=== PATIENT | male | born 1990 | race Caucasian/White ===

== ENCOUNTER → 2017-05-01 | Outpatient (CLI) | payer BC ==
[~2017-05-01] MED LIST: RANI150T3 PO
[2017-05-01 17:49] LABS: ALT/SGPT 38 U/L (12-78); AST/SGOT 31 U/L (15-37); BLOOD UREA NITROGEN 17 mg/dl (7-18); BUN/CREATININE RATIO 17.7 (10-20); CALCIUM 8.5 mg/dl (8.5-10.1); CARBON DIOXIDE 26 mmol/L (21-32); CHLORIDE 106 mmol/L (98-107); CREATININE 0.95 mg/dl (0.60-1.40); GLUCOSE 80 mg/dl (70-99); POTASSIUM 3.9 mmol/L (3.5-5.1); SODIUM 137 mmol/L (136-145)
[2017-05-01 17:50] LABS: BASO % 0.5 %; BASO ABS # 0.03 K/uL (0-0.2); EOS % 2.4 %; HEMATOCRIT 39.3 % (42-52); IG% 0.2 %; LYMPH % 30.1 %; LYMPH ABS # 1.66 K/uL (1.2-3.4); MEAN CELL VOLUME 60.4 fL (80-100); MEAN CORPUSCULAR HEMOGLOBIN 18.7 pg (25-34); MONO % 9.4 %; NEUT % 57.4 %; PLATELET COUNT 254 K/uL (130-400); RED BLOOD COUNT 6.51 M/uL (4.7-6.1); WHITE BLOOD COUNT 5.52 K/uL (4.8-10.8)
[2017-05-01 17:59] LABS: ALB/GLOB RATIO 1.2 (0.9-2); ALKALINE PHOSPHATASE 81 U/L (45-117)
[2017-05-01 18:15] LABS: COMPLETE YES; MICROCYTOSIS PRESENT; OVALOCYTES 1+
== END | disposition home or self-care (01) ==
LOC: C.LABBFT 13:14
PROVIDERS: ATTEND Internal Medicine
DX: M62.81 Muscle weakness (generalized) (principal); R68.82 Decreased libido

== ENCOUNTER → 2017-05-14 | Outpatient (CLI) | payer BC ==
[2017-05-14 18:01] LABS: BASO % 0.3 %; BASO ABS # 0.03 K/uL (0-0.2); EOS % 2.1 %; IG% 0.2 %; LYMPH % 19.6 %; MEAN CELL VOLUME 60.2 fL (80-100); MEAN CORPUSCULAR HEMOGLOBIN 19.1 pg (25-34); MEAN CORPUSCULAR HGB CONC 31.8 g/dl (32-36); MONO % 6.2 %; NEUT % 71.6 %; PLATELET COUNT 285 K/uL (130-400); RED BLOOD COUNT 6.64 M/uL (4.7-6.1); WHITE BLOOD COUNT 8.66 K/uL (4.8-10.8)
[2017-05-14 18:16] LABS: ALT/SGPT 43 U/L (12-78); BLOOD UREA NITROGEN 20 mg/dl (7-18); BUN/CREATININE RATIO 18.5 (10-20); CALCIUM 8.1 mg/dl (8.5-10.1); CARBON DIOXIDE 26 mmol/L (21-32); CHLORIDE 106 mmol/L (98-107); GLUCOSE 96 mg/dl (70-99); POTASSIUM 3.8 mmol/L (3.5-5.1); SODIUM 140 mmol/L (136-145)
[2017-05-14 18:20] LABS: PROLACTIN 6.85 ng/mL
[2017-05-14 18:27] LABS: ALB/GLOB RATIO 1.2 (0.9-2); ALKALINE PHOSPHATASE 83 U/L (45-117); AST/SGOT 34 U/L (15-37)
[2017-05-14 18:32] LABS: COMPLETE YES; MICROCYTOSIS PRESENT; OVALOCYTES 1+; POLYCHROMASIA 1+
== END | disposition home or self-care (01) ==
LOC: C.LABBFT 15:32
PROVIDERS: ATTEND Internal Medicine
DX: M62.81 Muscle weakness (generalized) (principal); R68.82 Decreased libido; N52.9 Male erectile dysfunction, unspecified; D56.3 Thalassemia minor; E29.1 Testicular hypofunction